=== PATIENT | male | born 1940 | race Caucasian/White ===

== ENCOUNTER 2017-09-24 13:25 | Inpatient (IN) | payer OTHER ==
[~2017-09-24] VITALS: Ht 172.7 cm; Wt 79.8 kg
--- NOTE | ~2017-09-24 | EKG ---
[address] [place] [address] ELECTROCARDIOGRAM REPORT Name: CHANDNI LAI Room #: 170-11 ADM IN M.R.#: [id number] Admission: 09/24/17 Attend Phys: Nahun Maher MD Discharge: Date of : 38 Report #: [id number] THIS REPORT FOR: //name// [facility] ED Test Date: 2017-09-24 Test Time: 13:33:08 Pat Name: CHANDNI LAI Department: Room: Gender: M Software Developer Mid Level: HANNA : 1940 Requested By: Eliseo Gao Order Number: [id number] MD: Gentry Yepez Measurements Intervals [place] Rate: 69 P: 54 NM: 171 QRS: -12 QRSD: 110 T: 10 QT: 409 QTc: 438 Interpretive Statements Sinus rhythm RSR' in V1 or V2, right VCD or RVH Minimal ST elevation, anterior leads No previous ECG available for comparison Electronically Signed On 09-24-2017 15:32:31 CDT by Gentry Yepez [email or web address] <ELECTRONICALLY SIGNED> By: Gentry Yepez MD 09/24/17 1532 1333 1333 Gentry Yepez MD /EPI
--- NOTE | ~2017-09-24 | CATHLAB ---
[facility] [place] [address] INVASIVE PROCEDURE REPORT Name: CHANDNI LAI Room #: 207-P DIS IN M.R.#: [id number] Admission: 09/24/17 Attend Phys: Nahun Maher, Discharge: 09/25/17 Date of : 38 Date of Service: 09/29/17 1621 Report #: [id number] THIS REPORT FOR: //name// APPROVED REPORT Study performed: 09/24/2017 15:11:55 Patient Details Patient Status: In-Patient Room #: The patient is a 77 year-old male Event Personnel Torrey Encarnacion Activities Manager, Selma Fuentes RN RN, Anne-Marie Osborne Grimm, Amy Monitor Procedures Performed Art Access - R femoral artery* , Left Heart CatheterizationDES Place w/wo Plasty Single OM 422457 NOREEN Place w/wo Plasty Single RCA 150995 Hemostasis w/ Mynx Indication Chest pain Procedure Narrative The Right Groin^ was infiltrated with 1% Lidocaine subcutaneous anesthesia. A PINNACLE 6FR Sheath #[id number] sheath was inserted into the RFA^. Coronary angiography was performed using coronary diagnostic catheters. The right coronary system was accessed and visualized with a JR4 catheter. The left coronary system was accessed and visualized with a JL4 catheter. The left ventricle was accessed and visualized with a Pigtail catheter. Left ventriculogram was performed in 30 degree projection. An aortogram of the abdominal aorta was performed. Closure device was deployed with a 6 Fr Mynx. The patient tolerated the procedure well and there were no complications associated with the procedure. A hematoma occurred. Intraoperative Conscious Sedation Sedation start time: 16:08 Case end Time: 16:53 Fentanyl 25 mcg Versed 1.5 mg Fluoro Time: 10.36 minutes Dose: DAP 8857.00 cGycm2 1040 mGy Contrast Type and Amount: Omnipaque 250 ml [facility] [place] [address] INVASIVE PROCEDURE REPORT Name: CHANDNI LAI Room #: 207-P [facility] IN M.R.#: [id number] Admission: 09/24/17 Attend Phys: Nahun Maher, Discharge: 09/25/17 Date of : 38 Date of Service: 09/29/17 1621 Report #: [id number] Hemodynamics The aortic pressure is 131/58 mmHg with a mean of 91 mmHg. The left ventricular pressure is 179/18 mmHg with a mean of mmHg. The left ventricular end diastolic pressure is 27 mmHg. PCI Technique Lesion Percutaneous coronary intervention was performed on the second obtuse marginal branch segment. A LAUNCHER 6FR EBU 4 #[id number] Guide Catheter was used to engage the ostium. A Grant Wire (J) .014 X 182CM #[id number] Interventional Guidewire was used to cross the lesion. BALLOON DILATION A Balloon catheter Sprinter OTW 2.5 x 15 #[id number] was inserted and inflated up to 6atm for 28seconds. Additional Inflation: 8atm for 18seconds. Additional Inflation: 10atm for 26seconds. Additional Inflation: 12 pierre for 17 seconds STENT DEPLOYMENT A drug-eluting stent RESOLUTE OTW 2.5 X 26 #[id number] was inserted and inflated up to 10atm for 32seconds. Additional Inflation: 12atm for 28seconds. PCI Technique Lesion 2 Percutaneous Coronary Intervention was performed on the mid right coronary artery. A LAUNCHER 6FR JR 4 #142494 Guide Catheter was used to engage the ostium. A Luge Wire (J) .014 X 182CM #[id number] Interventional Guidewire was used to cross the lesion. Stent Deployment A drug-eluting stent RESOLUTE OTW 2.75 X 12 #[id number] was inserted and inflated up to 16atm for 37seconds. Conclusion #1 successful PTCA stent of subtotaled second OM branch with a 2 5 x 26 resolute yielding 0% residual and MARISABEL grade 3 flow #2 successful PTCA stent of 99% mid RCA lesion with a 27 5 x 12 resolute postdilated 3.0 mm MARISABEL grade 3 flow #3 left main free of disease giving rise to LAD and circumflex #4 LAD extends around the apex with moderate disease and calcification along 50-60% mid vessel lesion but no high-grade occlusive disease for intervention. #5 normal left ventricular size with subtle lateral wall leg EF 50-55% #6 abdominal aorta with mild ectasia no occlusive disease renal arteries appear to be patent [address] [address] INVASIVE PROCEDURE REPORT Name: CHANDNI LAI Room #: 207-P [facility] IN M.R.#: [id number] Admission: 09/24/17 Attend Phys: VitalyFrances ThrasherMaher, Discharge: 09/25/17 Date of : 38 Date of Service: 09/29/17 [facility] Report #: [id number] Recommendations and plan continue aggressive risk factor modification. DDAVP T dual antiplatelet therapy for one year. Transfer to CCU in stable but guarded condition. <ELECTRONICALLY SIGNED> By: Torrey Encarnacion MD, FACC 09/29/17 162 20 20 Torrey Encarnacion MD, FACC /INF
--- NOTE | ~2017-09-24 | EKG ---
[address] [place] [address] ELECTROCARDIOGRAM REPORT Name: CHANDNI LAI Room #: 207-P ADM IN M.R.#: [id number] Admission: 09/24/17 Attend Phys: Nahun Maher MD Discharge: Date of : 38 Report #: [id number] THIS REPORT FOR: //name// [facility] ED Test Date: 2017-09-24 Test Time: 14:29:57 Pat Name: CHANDNI LAI Department: Room: 207 P Gender: M Solar Installer Pv: HANNA : 1940 Requested By: Eliseo Gao Order Number: [id number] MD: Long Moss Measurements Intervals [place] Rate: 70 P: 56 [place]: 180 QRS: -15 QRSD: 108 T: 6 QT: 399 QTc: 431 Interpretive Statements Sinus rhythm Borderline left axis deviation RSR' in V1 or V2, right VCD or RVH Nonspecific ST segment abnormalities Compared to ECG 09/24/2017 13:33:08 No significant changes Electronically Signed On 09-25-2017 11:34:43 CDT by Long Moss [email or web address] <ELECTRONICALLY SIGNED> By: Long Moss MD 09/25/17 1134 1429 1429 Long Moss MD /EPI
--- NOTE | ~2017-09-24 | H ---
[facility] [place] [address] HISTORY AND PHYSICAL Name: CHANDNI LAI Room #: 207-P [facility] IN M.R.#: [id number] Admission: 09/24/17 Attend Phys: Nahun Maher MD Discharge: 09/25/17 Date of : 38 Report #: [id number] THIS REPORT FOR: //name// CC: Cayetano Maher DATE OF SERVICE: 09/24/2017 HISTORY OF PRESENT ILLNESS: The patient is a 77-year-old male who was sent up here to [facility] by Dr. Cayetano Tovar in [place], [place]. He had called me and the patient had been describing some accelerating anginal pattern. He was down in [place], [place]. He drove to [facility] here with nonspecific EKG changes inferolaterally. No current of injury, but a troponin of 0.22. This has been going on and off for the last couple of weeks he states and a definite decrease in exercise tolerance. It has generally been with exertion and not with rest. He does not have documented coronary artery disease, but his father had premature disease and had his initial infarct in his early 60s. He has had no syncope or presyncope. He takes a blood pressure and cholesterol pill, simvastatin, lisinopril. He does note that at least some records from Dr. Tovar did have an LDL of 174. It seems not likely he is taking a cholesterol medicine. I think Dr. Tovar recently started him on 5 mg of Crestor. We do not know about metoprolol 25 that he was also initiated on. ALLERGIES: NIACIN. PAST MEDICAL HISTORY: Hypertension, hypercholesterolemia, PAST SURGICAL HISTORY: Rotator cuff surgery, knee surgery, DJD. SOCIAL HISTORY: He is . He is retired. Social drinker. He used to smoke, quit tobacco 40 years ago. He has 2 children, alive and well. He is retired. FAMILY HISTORY: Positive, father had premature coronary disease. LABORATORY DATA: Troponin as I stated 0.22. H and H were 13 and 40. Liver function tests were noted. Creatinine 1.1. REVIEW OF SYSTEMS: Negative except for the arthritis and some nocturia. PHYSICAL EXAMINATION: VITAL SIGNS: Blood pressure 146/70, pulse in the 70s and regular. HEENT: Eyes reveal xanthelasmas. Pharynx is clear. NECK: Shows preserved upstrokes without JVD or bruits. [facility] [address] [place] [address] HISTORY AND PHYSICAL Name: CHANDNI LAI Room #: [address] [place] [address] IN M.R.#: [id number] Admission: 09/24/17 Attend Phys: Nahun Maher MD Discharge: 09/25/17 Date of : 38 Report #: [id number] LUNGS: Clear. CARDIOVASCULAR: Regular rate and rhythm, S1, S2. Short systolic murmur. ABDOMEN: Soft. No HSM or abdominal bruit. EXTREMITIES: Reveal no edema. Pulses diminished, but intact. NEUROLOGIC: Nonfocal. SKIN: Warm and dry without xanthoma or ulcer. MUSCULOSKELETAL: Generalized arthritic changes. ASSESSMENT: 1. Non-ST segment elevated GA with recurrent pain, positive troponin. 2. Hypertension. 3. Hypercholesterolemia. 4. Degenerative joint disease. RECOMMENDATIONS AND PLAN: I have given aspirin and Lipitor 80. We will proceed emergently to the catheterization lab to delineate the anatomy. Risks, benefits, alternatives were discussed with the patient. He does elect to proceed. Thank you for asking me to assist in the care of this patient. <ELECTRONICALLY SIGNED> By: Torrey Encarnacion MD, FACC 10/06/17 0737 1659 1726 Torrey Encarnacion MD, FACC /nt
[2017-09-24 13:33] VITALS: BP 165/78
[2017-09-24 14:15] LABS: ABSOLUTE NEUTROPHILS 4.9 thou/uL (1.4-8.2); BASOPHILS 0.6 % (0.0-2.0); EOSINOPHILS 2.9 % (0.0-3.0); HEMATOCRIT 40.4 % (42.0-52.0); HEMOGLOBIN 13.8 gm/dL (14.0-18.0); LYMPHOCYTES 30.7 % (24.0-44.0); MCH 31.2 pg (26.0-34.0); MCHC 34.2 g/dL (28.0-37.0); MCV 91.2 fL (80.0-100.0); MONOCYTES 6.6 % (1.0-8.0); PLATELET COUNT 230 thou/uL (150-400); POLYS 59.2 % (36.0-66.0); RBC 4.43 mil/uL (4.50-6.00); RDW 13.3 % (10.5-14.5); WBC 8.3 thou/uL (4.0-11.0)
[2017-09-24 14:19] LABS: CALCIUM 9.1 mg/dL (8.5-10.1); CREATININE 1.1 mg/dL (0.7-1.3); POTASSIUM 3.9 mmol/L (3.5-5.1)
[2017-09-24 14:27] LABS: ALBUMIN 3.5 g/dL (3.4-5.0); TOTAL BILIRUBIN 0.3 mg/dL (<0.1-1.0); TOTAL PROTEIN 7.1 g/dL (6.4-8.2); TROPONIN-I 0.22 ng/mL (<0.06)
[2017-09-24 14:32] LABS: APTT 26.3 Seconds (24.5-32.8); PROTIME 10.2 Seconds (9.3-11.4)
[2017-09-24 15:18] VITALS: BP 142/73
[2017-09-24 15:41] VITALS: BP 142/73
[2017-09-24 17:49] VITALS: BP 156/75
[2017-09-24 19:26] VITALS: BP 146/73
[2017-09-24] MEDS ORDERED: CRESTOR5 MG PO (19:30)
[2017-09-24] MEDS ORDERED: TOPROL XL25 MG PO (19:30)
[2017-09-24] MEDS ORDERED: OMEPRAZOLE 20 M20 M1 PO (19:31)
[2017-09-24] MEDS ORDERED: ASPIRIN325 PO (19:31)
[2017-09-24 23:43] VITALS: BP 120/58
[2017-09-25 02:22] LABS: ABSOLUTE NEUTROPHILS 3.4 thou/uL (1.4-8.2); BASOPHILS 0.7 % (0.0-2.0); EOSINOPHILS 4.4 % (0.0-3.0); HEMATOCRIT 36.7 % (42.0-52.0); HEMOGLOBIN 12.5 gm/dL (14.0-18.0); LYMPHOCYTES 32.7 % (24.0-44.0); MCHC 34.2 g/dL (28.0-37.0); MCV 90.9 fL (80.0-100.0); MONOCYTES 9.3 % (1.0-8.0); PLATELET COUNT 215 thou/uL (150-400); POLYS 52.9 % (36.0-66.0); RBC 4.04 mil/uL (4.50-6.00); RDW 12.9 % (10.5-14.5); WBC 6.3 thou/uL (4.0-11.0)
[2017-09-25 02:36] LABS: ANION GAP 8 mmol/L (7-16); BUN 18 mg/dL (7-18); CALCIUM 8.1 mg/dL (8.5-10.1); CHLORIDE 108 mmol/L (98-107); CHOLESTEROL 162 mg/dL (<200); CO2 27 mmol/L (21-32); GLUCOSE 114 mg/dL (74-106); HDL CHOLESTEROL 42 mg/dL (>40); LDL CHOLESTEROL 102 mg/dL (<100); MAGNESIUM 1.9 mg/dL (1.8-2.4); POTASSIUM 3.7 mmol/L (3.5-5.1); SODIUM 143 mmol/L (136-145); TC:HDL 3.9 Ratio (Not establshd); TRIGLYCERIDE 93 mg/dL (<150); VLDL 19 mg/dL (<40)
[2017-09-25 04:31] VITALS: BP 119/62
[2017-09-25 08:00] VITALS: BP 133/80
[2017-09-25 11:23] VITALS: BP 133/80
== END 2017-09-25 12:49 | disposition home or self-care (01) | DRG 246 ==
LOC: ER 13:25 → 2N 14:55 → EROBS 14:55 → 2N 15:59
PROVIDERS: Emergency Medicine; Nurse Practitioner
DX: I21.4 Non-ST elevation (NSTEMI) myocardial infarction (principal); I50.33 Acute on chronic diastolic (congestive) heart failure; K21.9 Gastro-esophageal reflux disease without esophagitis; E78.00 Pure hypercholesterolemia, unspecified; M19.90 Unspecified osteoarthritis, unspecified site; E78.5 Hyperlipidemia, unspecified; Z88.1 Allergy status to other antibiotic agents; Z82.49 Family history of ischemic heart disease and other diseases of the circulatory system; Z86.73 Personal history of transient ischemic attack (TIA), and cerebral infarction without residual deficits; Z87.891 Personal history of nicotine dependence; Z98.49 Cataract extraction status, unspecified eye; Z79.82 Long term (current) use of aspirin; Z79.899 Other long term (current) drug therapy; I11.0 Hypertensive heart disease with heart failure
CPT/HCPCS: 10194

== ENCOUNTER → 2018-11-18 | Outpatient (CLI) | payer OTHER ==
[~2018-11-18] MED LIST: ASPIRIN325 PO; CRESTOR5 MG PO; OMEPRAZOLE 20 M20 M1 PO; TOPROL XL25 MG PO
--- NOTE | 2018-11-18 17:16 | EXE ---
[facility]en [employer] [place] [address] STRESS ECHOCARDIOGRAM Name: CHANDNI LAI Room #: REG Angélica#: [id number] ������������� Admission: 11/18/18 ������������� Attend Phys: Torrey Encarnacion, Discharge: ��� ������������� ��� Date of : 38 Date of Service: 11/18/18 1716 �� Report #: [id number] �������� ��������������������������������������������[id number] THIS REPORT FOR: //name// APPROVED REPORT Study performed: 11/18/2018 10:21:11 Exam: Stress Echocardiogram Indication: CAD Patient Location: Out-Patient Stress Nurse: Alexandra Toro RN Status: routine Ht: 5 ft 8 in Medical History Medical History: CAD s/p stents in 09/2017 Allergies: Niacin Cardiac Risk Factors: HTN, Hyperlipidemia Procedure The patient underwent an Exercise Stress Test using the Naga Protocol. Blood pressure, heart rate, and EKG were monitored. An Echocardiogram was performed by spa technician in four stages in quad fashion. At peak stress, four selected images were obtained and placed side by side with resting images for comparison. Stress Test Details Stress Test: Exercise stress testing was performed using a Naga protocol. HR Resting HR: 63 bpm Max Heart Rate (APMHR): 141 bpm Max HR Achieved: 151 bpm Target HR (85% APMHR): 119 bpm % of APMHR: 107 Recovery HR: 84 bpm HR response to stress: Normal HR response to stress BP Resting BP: 132/68 mmHg Max BP: 142/82 mmHg Recovery BP: 140/72 mmHg BP response to stress: Normal blood pressure response to stress. ECG [facility] [address] [place] [address] STRESS ECHOCARDIOGRAM Name: JAGUARESTEVANCHANDNI NAIDU Room #: REG [facility]#: [id number] ������������� Admission: 11/18/18 ������������� Attend Phys: Torrey Encarnacion, Discharge: ��� ������������� ��� Date of : 38 Date of Service: 11/18/181715 �� Report #: [id number] �������� ��������������������������������������������[id number] Clinical Reason for Termination: Completed protocol Exercise duration: 7 min 19 sec Highest Stage Achieved: Stage 3: 3.4 mph at 14% grade. Exercise capacity: 10.10 METs Pre-Stress Echo The resting Echocardiogram showed normal left ventricular contractility with an estimated Ejection Fraction of about 50-55%. Post-Stress Echo The stress Echocardiogram showed normal left ventricular contractility with an estimated Ejection Fraction of about 65-70%. Compared to rest, there were no stress-induced wall motion abnormalities. Other Information Study Quality: Good ��������������������������������������������� <ELECTRONICALLY SIGNED> ���������������������������������������� By: Torrey Encarnacion MD, [facility] ��������������������������������������������� 11/18/181715 15 15 Torrey Encarnacion MD, FACC /INF
== END ==
LOC: CV 07:27
DX: I65.23 Occlusion and stenosis of bilateral carotid arteries (principal); I25.10 Atherosclerotic heart disease of native coronary artery without angina pectoris; I10 Essential (primary) hypertension; E78.00 Pure hypercholesterolemia, unspecified; Z95.818 Presence of other cardiac implants and grafts; Z88.8 Allergy status to other drugs, medicaments and biological substances

== ENCOUNTER → 2019-08-03 | Outpatient (CLI) | payer OTHER | LOC: SJCVC 10:57 | DX: I25.10 Atherosclerotic heart disease of native coronary artery without angina pectoris (principal); I10 Essential (primary) hypertension; E78.00 Pure hypercholesterolemia, unspecified; R06.02 Shortness of breath ==

== ENCOUNTER → 2019-08-04 | Outpatient (CLI) | payer OTHER | LOC: SJCVCIMAG 07:46 | DX: I08.8 Other rheumatic multiple valve diseases (principal); I25.10 Atherosclerotic heart disease of native coronary artery without angina pectoris; I10 Essential (primary) hypertension; E78.5 Hyperlipidemia, unspecified; Z87.891 Personal history of nicotine dependence; Z79.899 Other long term (current) drug therapy ==

== ENCOUNTER 2019-08-11 07:48 | Observation (INO) | payer OTHER ==
[~2019-08-11] VITALS: Ht 172.7 cm; Wt 74.4 kg
[2019-08-11] VITALS (11 sets, daily range): BP systolic 115–1147; BP diastolic 66–101
[2019-08-11 09:39] LABS: HEMATOCRIT 41.6 % (42.0-52.0); HEMOGLOBIN 13.8 gm/dL (14.0-18.0); MCHC 33.3 g/dL (28.0-37.0); MCV 93.3 fL (80.0-100.0); RBC 4.46 mil/uL (4.50-6.00); RDW 13.4 % (10.5-14.5); WBC 5.6 thou/uL (4.0-11.0)
[2019-08-11] MEDS ORDERED: ASA81BEC PO (09:43)
[2019-08-11] MEDS ORDERED: ZETIA10 MG PO (09:44)
[2019-08-11] MEDS ORDERED: PLAVIX 75 MG TA75 MG PO (09:44)
[2019-08-11] MEDS ORDERED: LISINOPRIL2.5 MG PO (09:45)
[2019-08-11] MEDS ORDERED: MELATONIN3 M1 PO (09:45)
[2019-08-11] MEDS ORDERED: NITROSTAT0.4 M1 SUBLING (09:46)
[2019-08-11] MEDS ORDERED: OMEPRAZOLE 20 M20 M1 PO (09:46)
[2019-08-11] MEDS ORDERED: TAMSULOSIN HCL0.4 MG PO (09:47)
[2019-08-11 09:50] LABS: CALCIUM 8.4 mg/dL (8.5-10.1); POTASSIUM 4.1 mmol/L (3.5-5.1)
--- NOTE | 2019-08-11 16:23 | NUR ---
PT CARE ASSUMED AT 1430. PT ASSESSMENT CHARTED. PT ADMIT COMPLETED. POST CATH. RT GROIN VENOUS/ARTERIAL SITE. PT DENIES PAIN. PT IS BEING MONITORED.
--- NOTE | 2019-08-11 16:39 | CATHLAB ---
[facility] [place] [address] INVASIVE PROCEDURE REPORT Name: CHANDNI LAI Room #: 213-P ADM Primo Lindsay#: [id number] Admission: 08/11/19 Attend Phys: Torrey Encarnacion MD, Discharge: Date of : 38 Report #: [id number] THIS REPORT FOR: cc: Cayetano Tovar James R. DO Mancuso, Gerald M. MD [facility] ~ APPROVED REPORT Study performed: 08/11/2019 12:50:00 Patient Details Patient Status: Out-Patient Room #: The patient is a 79 year-old male Event Personnel Torrey Encarnacion Economic Research Assistant, Pari Wesley RTR, BODY PAINTER Monitor, Sissy Gonzalez RN RN, Anne-Marie Osborne Procedures Performed Art Access - R femoral artery* Juan Carlos Access - R femoral vein Right and Left Heart Cath w/or w/o Coronarie [id number] RL NOREEN Place w/wo Plasty Single OM 278317 97661 Initial Mod Sed Same Phys/QHP Gr5y 658176 96715 Mod Sed Same Phys/QHP Ea 464633 Hemostasis w/ Mynx Hemostasis with Manual pressure Indication Positive stress test Procedure Narrative A SHEATH BRITE-TIP 6F X 11CM (753279) sheath was inserted into the RFA. Coronary angiography was performed using coronary diagnostic catheters. The right coronary system was accessed and visualized with a JR4 catheter. The left coronary system was accessed and visualized with a JL4 catheter. The left ventricle was accessed and visualized with a pgitail catheter. Left ventricular/Aortic Valve gradient assessed via catheter pullback. Left ventriculogram was performed in 30 degree projection. Closure device was deployed with a 6 Fr MYNXGRIP 6/7F #[id number]. Hemostasis was obtained with manual pressure following sheath removal without any complications. The patient tolerated the procedure well and there were no complications associated with the procedure. There was no hematoma. Intraoperative Conscious Sedation [facility] [address] [place] [address] INVASIVE PROCEDURE REPORT Name: CHANDNI LAI Room #: 213-P [facility] IN M.R.#: [id number] Admission: 08/11/19 Attend Phys: Torrey Encarnacion, Discharge: Date of : 38 Report #: [id number] Sedation start time: 12:24 Case end Time: 14:07 Fentanyl 100 mcg Versed 2 mg Conscious sedation is a combined total for renal angiogram and heart cath. Fluoro time and dose is a combined total for renal angiogram and heart cath. Contrast totals are a combination for renal angiogram and heart cath. Fluoro Time: 9.80 minutes Dose: DAP 08434.57 cGycm2 1275 mGy Contrast Type and Amount: Visipaque 67 ml Hemodynamics The right atrial mean pressure is 8 mmHg. The right ventricular pressure is 30/2 mmHg. The pulmonary artery pressure is 25/11 mmHg with a mean of 16 mmHg. The aortic pressure is 149/63 mmHg with a mean of 97 mmHg. The left ventricular pressure is 157/7 mmHg with a mean of mmHg. The left ventricular end diastolic pressure is 18 mmHg. The cardiac output using thermo method is 4.35 L/min. The cardiac index using thermo method is 2.29 L/min/m2. PCI Technique Lesion Percutaneous coronary intervention was performed on the first obtuse marginal branch segment. A LAUNCHER 6FR EBU 3.5 #307789 Guide Catheter was used to engage the ostium. A Luge Wire .014 x 182CM #[id number] Interventional Guidewire was used to cross the lesion. STENT DEPLOYMENT A drug-eluting stent RESOLUTE LAN OTW 2.5 X 12 #[id number] was inserted and inflated up to 12.00atm for 25seconds. Additional Inflation: 16.00atm for 29seconds. Conclusion #1. Normal left ventricular size systolic function lower limits of normal with mild to moderate mitral regurgitation EF 50% range #2 left main with mild disease giving rise to LAD and circumflex #3 LAD with a 50 to 60% proximal stenosis involving the diagonal takeoff at the bifurcation the diagonal is relatively small but has an ostial lesion of 70%. There is a mid LAD of 60% and then this wraps the apex well preserved #4 circumflex OM as an eccentric proximal lesion of 75 to 80% in the first OM just proximal to a previously placed stent circumflex otherwise is preserved #4 dominant right coronary artery small and diffusely diseased but [facility] [address] [place] [address] INVASIVE PROCEDURE REPORT Name: JAGUARCHANDNI BARRETO Room #: 213-P [facility] IN M.R.#: [id number] Admission: 08/11/19 Attend Phys: Torrey Encarnacion, Discharge: Date of : 38 Report #: [id number] anatomically dominant #5 successful PTCA stent of the proximal OM lesion this stented telescoped into a prior stent. 0% residual MARISABEL grade III flow. A 2.5 x 12 Lan was placed #6 successful right heart catheterization with cardiac output by thermodilution. See above hemodynamics. <ELECTRONICALLY SIGNED> By: Torrey Encarnacion MD, FACC 08/11/19 1638 1638 1638 Torrey Encarnacion MD, FACC /INF
--- NOTE | 2019-08-11 18:03 | NUR ---
PT CARE ASSUMED AT 1430. PT ASSESSMENT CHARTED. PT MEDICATION CHARTED. POST CATH PROXIMAL OM. RT GROIN SITE; BOTH VENOUS AND ARTERIAL. HEMOSTASIS 1403. PT TO DISCHARGE 08/12/19; ORDER ALREADY WRITTEN AND ACKNOWLEDGED.
[2019-08-12 00:45] VITALS: BP 154/66
--- NOTE | 2019-08-12 03:59 | NUR ---
ASSESSMENT DOCUMENTED.PT S/P CARDIAC RORY WITH INTERVENTION.NSR ON MONITOR.VSS.RIGHT GROIN W/O HEMATOMA,DRESSING CDI.C/O INDIGESTION THAT WAS CONTROLLED WITH MYLANTA AND PROTONIX PER DR SEAY'S ORDERS,DENIED CHEST PAINS OR BREATHING DIFFICULTIES. PT AMBULATED WITH STAFF 2XS IN THE UNIT W/O PROBLEMS.POC IS TO DSICHARGE TO HOME TODAY.
[2019-08-12 04:45] VITALS: BP 119/68
[2019-08-12 04:53] LABS: HEMATOCRIT 39.6 % (42.0-52.0); HEMOGLOBIN 13.2 gm/dL (14.0-18.0); MCH 31.2 pg (26.0-34.0); MCHC 33.4 g/dL (28.0-37.0); MCV 93.6 fL (80.0-100.0); RBC 4.23 mil/uL (4.50-6.00); RDW 13.5 % (10.5-14.5); WBC 6.8 thou/uL (4.0-11.0)
[2019-08-12 05:19] LABS: ANION GAP 7 mmol/L (7-16); BUN 17 mg/dL (7-18); CALCIUM 8.2 mg/dL (8.5-10.1); CHLORIDE 107 mmol/L (98-107); CO2 27 mmol/L (21-32); GLUCOSE 79 mg/dL (74-106); POTASSIUM 4.1 mmol/L (3.5-5.1); SGOT 16 U/L (15-37); SGPT 22 U/L (30-65); SODIUM 141 mmol/L (136-145); TOTAL BILIRUBIN 0.6 mg/dL (<0.1-1.0); TOTAL PROTEIN 6.3 g/dL (6.4-8.2); TROPONIN-I <0.06 ng/mL (<0.06)
[2019-08-12 08:00] VITALS: BP 119/74
[2019-08-12 10:33] VITALS: BP 119/68
--- NOTE | 2019-08-12 11:02 | NUR ---
ASSESSMENT CHARTED. PT ALERT AND ORIENTED. VSS. RIGHT GROIN INCISION C/D/I. NO HEMATOMA NOTED. DENIES HAVING PAIN OR DISCOMFORT. ORDERS GIVEN TO DISCHARGE PT TO HOME. DISCHARGE INSTRUCTIONS GIVEN TO PT. PT VERBERLISED UNDERSTANDING.
--- NOTE | 2019-08-12 11:53 | EKG ---
[facility] [place] [address] ELECTROCARDIOGRAM REPORT Name: CHANDNI LAI Room #: 213-[facility] Primo M.RFrances#: [id number] Admission: 08/11/19 Attend Phys: Torrey Encarnacion MD, Discharge: 08/12/19 Date of : 38 Report #: [id number] THIS REPORT FOR: cc: Cayetano Tovar,Gentry Aviles MD ~ THIS REPORT FOR: //name// [facility] Test Date: 2019-08-11 Test Time: 09:35:24 Pat Name: CHANDNI LAI Department: Room: 213 Gender: M Marketing Manager Health Communications: GRACIELA : 1940 Requested By: Torrey Encarnacion Order Number: [id number] : Gentry Yepez Measurements Intervals [place] Rate: 64 P: 51 [place]: 182 QRS: -9 QRSD: 105 T: 30 QT: 403 QTc: 416 Interpretive Statements Sinus rhythm RSR' in V1 or V2, right VCD or RVH Minimal ST elevation, anterior leads Compared to ECG 09/24/2017 14:29:57 ST (T wave) deviation now present Electronically Signed On 08-12-2019 11:51:38 CDT by Gentry Yepez [email or web address] <ELECTRONICALLY SIGNED> By: Gentry Yepez MD 08/12/19 1151 Gentry Yepez MD /EPI
--- NOTE | 2019-08-12 11:54 | EKG ---
[facility] [place] [address] ELECTROCARDIOGRAM REPORT Name: CHANDNI LAI Room #: 213- ANGELA Tillman M.RFrances#: [id number] Admission: 08/11/19 Attend Phys: Torrey Encarnacion MD, Discharge: 08/12/19 Date of : 38 Report #: [id number] THIS REPORT FOR: cc: Cayetano Tovar,Gentry Aviles MD ~ THIS REPORT FOR: //name// [facility] Test Date: 2019-08-11 Test Time: 17:34:33 Pat Name: CHANDNI LAI Department: Room: 213 Gender: M Branch Lending Manager: Royce IYER : 1940 Requested By: Torrey Encarnacion Order Number: [id number] : Gentry Yepez Measurements Intervals [place] Rate: 63 P: -15 [place]: 182 QRS: -19 QRSD: 102 T: 35 QT: 390 QTc: 400 Interpretive Statements Sinus rhythm Borderline left axis deviation RSR' in V1 or V2, probably normal variant Minimal ST elevation, anterior leads Compared to ECG 09/24/2017 14:29:57 ST (T wave) deviation now present Right ventricular hypertrophy no longer present Electronically Signed On 08-12-2019 11:53:11 CDT by Gentry Yepez [email or web address] <ELECTRONICALLY SIGNED> By: Gentry Yepez MD 08/12/19 1153 1734 1734 Gentry Yepez MD /EPI
--- NOTE | 2019-08-12 11:56 | EKG ---
[facility] [place] [address] ELECTROCARDIOGRAM REPORT Name: CHANDNI LAI Room #: 213-P DIS Primo M.RFrances#: [id number] Admission: 08/11/19 Attend Phys: Torrey Encarnacion MD, Discharge: 08/12/19 Date of : 38 Report #: [id number] THIS REPORT FOR: cc: Cayetano Tovar James R. DO Couchonnal, Luis F. MD ~ THIS REPORT FOR: //name// [facility] Test Date: 2019-08-12 Test Time: 07:30:49 Pat Name: CHANDNI LAI Department: Room: 213 P Gender: M Cut Off Saw Operator: Denae HURLEY : 1940 Requested By: Torrey Encarnacion Order Number: [id number] MD: Gentry Yepez Measurements Intervals [place] Rate: 62 P: 45 [place]: 174 QRS: -7 QRSD: 106 T: 35 QT: 404 QTc: 411 Interpretive Statements Sinus rhythm Abnormal R-wave progression, early transition Compared to ECG 09/24/2017 14:29:57 Right ventricular hypertrophy no longer present Electronically Signed On 08-12-2019 11:54:29 CDT by Gentry Yepez [email or web address] <ELECTRONICALLY SIGNED> By: Gentry Yepez MD 08/12/19 1154 9 9 Gentry Yepez MD /EPI
== END 2019-08-12 11:27 | disposition home or self-care (01) ==
LOC: CATH 07:48 → TBACV 13:56 → 2N 15:00
PROVIDERS: ADMIT Internal Medicine Cardiovascular Disease
DX: I25.10 Atherosclerotic heart disease of native coronary artery without angina pectoris (principal); I10 Essential (primary) hypertension; E78.5 Hyperlipidemia, unspecified; E11.9 Type 2 diabetes mellitus without complications; E78.00 Pure hypercholesterolemia, unspecified

== ENCOUNTER → 2019-12-11 | Outpatient (CLI) | payer OTHER ==
[~2019-12-11] MED LIST changes: +ASA81BEC PO; +LISINOPRIL2.5 MG PO; +MELATONIN3 M1 PO; +NITROSTAT0.4 M1 SUBLING; +PLAVIX 75 MG TA75 MG PO; +TAMSULOSIN HCL0.4 MG PO; +ZETIA10 MG PO
== END ==
LOC: SJCVC 11:50
PROVIDERS: ATTEND Internal Medicine Cardiovascular Disease
DX: I25.10 Atherosclerotic heart disease of native coronary artery without angina pectoris (principal); I10 Essential (primary) hypertension; E78.00 Pure hypercholesterolemia, unspecified; I65.23 Occlusion and stenosis of bilateral carotid arteries; I70.0 Atherosclerosis of aorta; I70.1 Atherosclerosis of renal artery; Z79.899 Other long term (current) drug therapy; Z87.891 Personal history of nicotine dependence

== ENCOUNTER → 2020-07-02 | Outpatient (CLI) | payer OTHER | LOC: SJCVCIMAG 06-13 07:36 | PROVIDERS: ATTEND Internal Medicine Cardiovascular Disease | DX: I65.23 Occlusion and stenosis of bilateral carotid arteries (principal); I10 Essential (primary) hypertension; I25.10 Atherosclerotic heart disease of native coronary artery without angina pectoris; E78.5 Hyperlipidemia, unspecified; Z79.01 Long term (current) use of anticoagulants; Z79.899 Other long term (current) drug therapy; Z87.891 Personal history of nicotine dependence; Z72.89 Other problems related to lifestyle; Z88.8 Allergy status to other drugs, medicaments and biological substances ==

== ENCOUNTER → 2021-03-28 | Outpatient (CLI) | payer OTHER | END | disposition home or self-care (01) | LOC: SJCVC 10:05 | PROVIDERS: ATTEND Internal Medicine Cardiovascular Disease | DX: R94.31 Abnormal electrocardiogram [ECG] [EKG] (principal); I10 Essential (primary) hypertension; I25.10 Atherosclerotic heart disease of native coronary artery without angina pectoris; E78.00 Pure hypercholesterolemia, unspecified; R06.02 Shortness of breath; I65.02 Occlusion and stenosis of left vertebral artery; I65.23 Occlusion and stenosis of bilateral carotid arteries; I70.1 Atherosclerosis of renal artery; I70.0 Atherosclerosis of aorta; R53.83 Other fatigue; R07.89 Other chest pain; Z79.82 Long term (current) use of aspirin; Z79.899 Other long term (current) drug therapy; Z98.890 Other specified postprocedural states ==

== ENCOUNTER → 2021-03-31 | Outpatient (CLI) | payer OTHER | LOC: SJCVCIMAG 07:04 | PROVIDERS: ATTEND Internal Medicine Cardiovascular Disease | DX: R94.31 Abnormal electrocardiogram [ECG] [EKG] (principal); R07.9 Chest pain, unspecified; I25.10 Atherosclerotic heart disease of native coronary artery without angina pectoris; R06.00 Dyspnea, unspecified ==